=== PATIENT | male | born 1990 | race Caucasian/White ===

== ENCOUNTER 2020-02-06 00:50 | Inpatient (IN) | payer MEDICAID, OTHER ==
[~2020-02-06] VITALS: Ht 185.4 cm; Wt 110.6 kg
--- NOTE | 2020-02-06 01:04 | NUR ---
29 Y/O MALE BIB EMS FROM [facility], TRANSFER FOR PANCREATITIS. PT IS CAOX4,. GCS OF 15, C/O LEFT SIDED ABD PAIN X 1 WEEK. HX OF ETOH ABUSE, STOPPED DRINKING 2 YEARS AGO, HAS ALSO HAD PANCREATITIS IN THE PAST. DENIES ANY COMPLAINTS UPON ARRIVAL. ALL VITALS STABLE. PT WAS TREATED WITH PAIN MEDS PRIOR TO ARRIVAL. MONITORING EQUIPMENT APPLIED, ALL VITALS STABLE. DR. LINARES AT BESIDE EVALUATING PT. WARM BLANKETS PROVIDED AND CALL LIGHT WITHIN REACH. WILL CONTINUE TO MONITOR.
--- NOTE | 2020-02-06 01:07 | NUR ---
PT ALSO RECEIVED IV ZOSYN AT [facility]
[2020-02-06] MEDS ORDERED: hydrALAzine 20 MG/ML, 1ML IVPush PRN (02:00)
[2020-02-06] MEDS ORDERED: ONDANSETRON 2MG/ML, 2ML IVPush PRN (02:00)
[2020-02-06] MEDS ORDERED: MORPHINE SULFATE 4 MG/ML, 1ML ONE (02:13)
[2020-02-06] MEDS: morphine SULFATE 10 MG/ML, 1ML IVPush PRN ×8 (02:15→21:07)
--- NOTE | 2020-02-06 02:30 | NUR ---
PATIENT STATED THAT HE HAD 8/10 PAIN TO LEFT UPPER AND LOWER QUADRANTS. VITAL SIGN STABLE FOR PAIN MEDICATIONS. PATIENT DENIES ANY ALLERGIES TO MORPHINE. UPDATED ON PLAN OF CARE. NO NOTED ACUTE DISTRESS. PATIENT DENIES ANY FURTHER NEEDS.
[2020-02-06 02:47] VITALS: BP 122/73
[2020-02-06] MEDS: SODIUM CHLORIDE 0.9% 1,000 ML IV SCH ×3 (05:22→22:56)
[2020-02-06] MEDS: PIPERACILLIN/TAZO/PMX 3.375GM 50 ML IV SCH ×3 (06:12→18:09)
[2020-02-06 06:17] LABS: BASOPHILS # (AUTO) 0.03 x10^3/uL (0-0.1); BASOPHILS % (AUTO) 0 % (0-1); EOSINOPHILS # (AUTO) 0.01 x10^3/uL (0-0.4); EOSINOPHILS % (AUTO) 0 % (1-7); LYMPHOCYTES # (AUTO) 1.44 x10^3/uL (1-3.4); LYMPHOCYTES % (AUTO) 16 % (22-44); MD NO; MEAN CORPUSCULAR HEMOGLOBIN 30.4 pg (27.5-34.5); MEAN CORPUSCULAR HGB CONC 33.5 g/dL (33.2-36.2); MEAN CORPUSCULAR VOLUME 90.5 fL (81-97); MEAN PLATELET VOLUME 8.1 fL (7.4-10.4); MONOCYTES # (AUTO) 0.47 x10^3/uL (0.2-0.8); MONOCYTES % (AUTO) 5 % (2-9); NEUTROPHILS # (AUTO) 7.34 x10^3/uL (1.8-6.8); NEUTROPHILS % (AUTO) 79 % (42-75); PLATELET COUNT 200 x10^3/uL (130-400); RED BLOOD COUNT 4.46 x10^6/uL (4.38-5.82); RED CELL DISTRIBUTION WIDTH 13.6 % (9.4-14.8)
[2020-02-06 06:17] LABS: INTERNATIONAL NORMALIZED RATIO 1.02 (0.93-1.1); PROTHROMBIN TIME 10.8 Seconds (9.6-11.5)
[2020-02-06 06:19] LABS: ANION GAP 6 mmol/L (5-15); CALCIUM 8.5 mg/dL (8.5-10.1); CHLORIDE 113 mmol/L (98-107); CREATININE 0.94 mg/dL (0.7-1.3)
[2020-02-06] MEDS ORDERED: SERT-237 PO (06:19)
[2020-02-06 06:51] VITALS: BP 135/74
[2020-02-06] MEDS: LIDODERM 5% PATCH TD SCH (10:12)
[2020-02-06 14:24] VITALS: BP 153/79
[2020-02-06 20:50] VITALS: BP 133/76
[2020-02-06] MEDS: DICYCLOMINE 10 MG CAPSULE PO SCH (21:07)
[2020-02-07] MEDS: PIPERACILLIN/TAZO/PMX 3.375GM 50 ML IV SCH ×4 (00:26→17:58)
[2020-02-07 02:15] VITALS: BP 156/79
[2020-02-07] MEDS: morphine SULFATE 10 MG/ML, 1ML IVPush PRN ×4 (02:20→21:31)
[2020-02-07] MEDS: OMEPRAZOLE 20 MG CAPSULE.DR PO SCH ×2 (05:56→16:17)
[2020-02-07] MEDS: DICYCLOMINE 10 MG CAPSULE PO SCH ×4 (05:56→21:31)
[2020-02-07 06:09] LABS: BASOPHILS # (AUTO) 0.03 x10^3/uL (0-0.1); BASOPHILS % (AUTO) 0 % (0-1); EOSINOPHILS # (AUTO) 0.07 x10^3/uL (0-0.4); EOSINOPHILS % (AUTO) 1 % (1-7); LYMPHOCYTES % (AUTO) 21 % (22-44); MD NO; MEAN CORPUSCULAR HEMOGLOBIN 30.5 pg (27.5-34.5); MEAN CORPUSCULAR HGB CONC 33.7 g/dL (33.2-36.2); MEAN CORPUSCULAR VOLUME 90.7 fL (81-97); MEAN PLATELET VOLUME 8.1 fL (7.4-10.4); MONOCYTES # (AUTO) 0.68 x10^3/uL (0.2-0.8); MONOCYTES % (AUTO) 8 % (2-9); NEUTROPHILS % (AUTO) 70 % (42-75); PLATELET COUNT 170 x10^3/uL (130-400); RED BLOOD COUNT 4.33 x10^6/uL (4.38-5.82); RED CELL DISTRIBUTION WIDTH 13.3 % (9.4-14.8)
[2020-02-07 06:12] LABS: CHLORIDE 111 mmol/L (98-107)
[2020-02-07 06:24] LABS: ALANINE AMINOTRANSFERASE 14 U/L (12-78); ALBUMIN 3.2 g/dL (3.4-5.0); ALKALINE PHOSPHATASE 84 U/L (45-117); ANION GAP 8 mmol/L (5-15); BILIRUBIN,TOTAL 0.5 mg/dL (0.2-1.0); CALCIUM 8.5 mg/dL (8.5-10.1); CREATININE 0.83 mg/dL (0.7-1.3); TOTAL PROTEIN 6.5 g/dL (6.4-8.2)
[2020-02-07 06:46] LABS: HCT (SEDRATE) 39.3 % (39.2-51.8)
[2020-02-07] MEDS: SODIUM CHLORIDE 0.9% 1,000 ML IV SCH ×2 (07:59→17:52)
[2020-02-07 08:00] VITALS: BP 139/72
[2020-02-07] MEDS: LIDODERM 5% PATCH TD SCH (09:54)
[2020-02-07 12:40] VITALS: BP 136/70
[2020-02-07 19:47] VITALS: BP 126/66
[2020-02-07] MEDS ORDERED: LIDODERM REMOVE PATCH NOTE XX SCH (22:30)
[2020-02-08] MEDS: PIPERACILLIN/TAZO/PMX 3.375GM 50 ML IV SCH ×3 (00:01→11:23)
[2020-02-08] MEDS: morphine SULFATE 10 MG/ML, 1ML IVPush PRN ×4 (00:31→14:21)
[2020-02-08 01:37] VITALS: BP 124/70
[2020-02-08 05:57] LABS: HCT (SEDRATE) 38.7 % (39.2-51.8)
[2020-02-08 06:01] LABS: BASOPHILS # (AUTO) 0.03 x10^3/uL (0-0.1); BASOPHILS % (AUTO) 0 % (0-1); EOSINOPHILS # (AUTO) 0.14 x10^3/uL (0-0.4); EOSINOPHILS % (AUTO) 1 % (1-7); LYMPHOCYTES # (AUTO) 2.07 x10^3/uL (1-3.4); LYMPHOCYTES % (AUTO) 22 % (22-44); MD NO; MEAN CORPUSCULAR HEMOGLOBIN 30.6 pg (27.5-34.5); MEAN CORPUSCULAR HGB CONC 33.4 g/dL (33.2-36.2); MEAN CORPUSCULAR VOLUME 91.9 fL (81-97); MEAN PLATELET VOLUME 7.9 fL (7.4-10.4); MONOCYTES % (AUTO) 9 % (2-9); NEUTROPHILS % (AUTO) 67 % (42-75); PLATELET COUNT 166 x10^3/uL (130-400); RED CELL DISTRIBUTION WIDTH 13.2 % (9.4-14.8)
[2020-02-08 06:11] LABS: ANION GAP 6 mmol/L (5-15); CALCIUM 8.2 mg/dL (8.5-10.1); CHLORIDE 110 mmol/L (98-107); CREATININE 0.89 mg/dL (0.7-1.3)
[2020-02-08] MEDS: SODIUM CHLORIDE 0.9% 1,000 ML IV SCH (06:29)
[2020-02-08] MEDS: OMEPRAZOLE 20 MG CAPSULE.DR PO SCH (06:30)
[2020-02-08] MEDS: DICYCLOMINE 10 MG CAPSULE PO SCH ×2 (06:30→11:23)
[2020-02-08 07:25] VITALS: BP 143/79
[2020-02-08 08:17] LABS: CLOSTRIDIUM DIFFICILE ANTIGEN NEGATIVE; CLOSTRIDIUM DIFFICILE TOXIN NEGATIVE (Negative)
[2020-02-08] MEDS: LIDODERM 5% PATCH TD SCH (09:37)
[2020-02-08 12:25] VITALS: BP 126/54
[2020-02-08] MEDS ORDERED: OMEP-110 PO (12:59)
[2020-02-08] MEDS ORDERED: ACET325T26 PO (12:59)
[2020-02-08] MEDS ORDERED: DICY10CA3 PO (12:59)
[2020-02-08] MEDS ORDERED: GABA-827 PO (12:59)
== END 2020-02-08 15:33 | disposition home or self-care (01) | DRG 440 ==
LOC: ED 02:00 → EDIP 02:43 → 3N 02:44
PROVIDERS: ADMIT Internal Medicine; ATTEND Hospitalist
DX: K86.3 Pseudocyst of pancreas (principal); D72.829 Elevated white blood cell count, unspecified; F17.210 Nicotine dependence, cigarettes, uncomplicated; G89.29 Other chronic pain; K21.9 Gastro-esophageal reflux disease without esophagitis; M19.90 Unspecified osteoarthritis, unspecified site; M54.9 Dorsalgia, unspecified
CPT/HCPCS: 36415; 72110; 80048; 80053; 83690; 85025; 85610; 85651; 86140; 87324; G0378; J2405; J2543; J2270; J7030